=== PATIENT | female | born 1975 | race Caucasian/White ===

== ENCOUNTER 2018-04-14 17:20 | Emergency (ER) | END 2018-04-14 20:15 | disposition home or self-care (01) ==

== ENCOUNTER 2018-10-06 16:11 | Emergency (ER) | payer MEDICAID, OTHER ==
[~2018-10-06] VITALS: Ht 152.4 cm; Wt 73.0 kg
[~2018-10-06 16:11] MED LIST: IBUP-1561 PO; METF500T PO; NAPR-985 PO; TRAM50TA2 PO
[2018-10-06 16:25] VITALS: Ht 152.4 cm; Wt 73.0 kg
[2018-10-06] MEDS ORDERED: KETOROLAC 30 MG INJ IM STA (18:58)
[2018-10-06] MEDS ORDERED: IBUP-1542 PO (19:01)
[2018-10-06 20:00] VITALS: BP 128/74; PULSE 79; RESP 15
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
== END 2018-10-06 20:00 | disposition home or self-care (01) ==
LOC: E/R 16:11
DX: S20.219A Contusion of unspecified front wall of thorax, initial encounter (principal); E11.9 Type 2 diabetes mellitus without complications; V49.40XA Driver injured in collision with unspecified motor vehicles in traffic accident, initial encounter; Z79.84 Long term (current) use of oral hypoglycemic drugs
CPT/HCPCS: 71045; 93005; 96372; J1885; Z7502

== ENCOUNTER 2019-01-08 10:07 | Emergency (ER) | payer OTHER ==
[~2019-01-08] VITALS: Ht 162.6 cm; Wt 70.0 kg
[~2019-01-08 10:07] MED LIST changes: +IBUP-1542 PO; -IBUP-1561 PO; -METF500T PO; -NAPR-985 PO; -TRAM50TA2 PO
[2019-01-08 10:16] VITALS: BP 139/81; PULSE 84; RESP 16; Ht 162.6 cm; Wt 70.0 kg
[2019-01-08] MEDS ORDERED: LIDOCAINE 1% (MDV) 20 ML INJ SC ONE (12:00)
--- NOTE | 2019-01-08 12:15 | ERD ---
ER Documentation Chief Complaint Chief Complaint pt bib self with c/o right great toenail pain/swelling s/p pedicure HPI 43-year-old female presents with complaint of pain to the right first toenail. States that is been hurting her since this past Friday. Pain is made worse with palpation. Denies any treatments. Denies any trauma to the area. Denies any fevers chills infection discharge. ROS All systems reviewed and are negative except as per history of present illness. Medications Home Meds Active Scripts Clindamycin Hcl* (Clindamycin Hcl*) 300 Mg Capsule, 300 MG PO TID for 7 Days, CAP Prov:LASHELL DURAND PA-C 01/10/19 Hydrocodone/Acetaminophen ([place] 5-325 Tablet) 1 Each Tablet, 1 TAB PO Q6H PRN for PAIN, #10 TAB Prov:JUDIE REN 01/08/19 Ibuprofen* (Motrin*) 600 Mg Tab, 600 MG PO Q6 for pain, #30 TAB Prov:JUDIE REN 01/08/19 Bacitracin* (Bacitracin Oint (UD)*) 1 Applic Oint, 1 APPLIC TOP BID, #1 TUB APPLY TO Prov:JUDIE REN 01/08/19 Ibuprofen* (Motrin*) 600 Mg Tab, 600 MG PO Q8 PRN for PAIN AND/OR INFLAMMATION, #30 TAB Prov:SOCO STINSON MD 10/06/18 Allergies Allergies: Coded Allergies: No Known Allergy (Unverified , 01/10/19) PMhx/Soc History of Surgery: No Anesthesia Reaction: No Hx Neurological Disorder: No Hx Respiratory Disorders: No Hx Cardiac Disorders: No Hx Psychiatric Problems: No Hx Miscellaneous Medical Probl: No Hx Alcohol Use: No Hx Substance Use: No Hx Tobacco Use: No Smoking Status: Never smoker FmHx Family History: No diabetes, No coronary disease, No other Physical Exam Vitals Vital Signs Date Temp Pulse Resp B/P (MAP) Pulse Ox O2 O2 Flow FiO2 Time Delivery Rate 01/08/19 98.3 84 16 139/81 99 10:16 (100) Physical Exam Const: No acute distress Head: Atraumatic Eyes: Normal Conjunctiva ENT: Normal External Ears, Nose and Mouth. Neck: Full range of motion. No meningismus. Resp: Clear to auscultation bilaterally Cardio: Regular rate and rhythm, no murmurs Abd: Soft, non tender, non distended. Normal bowel sounds Skin: No petechiae or rashes Back: No midline or flank tenderness Ext: No cyanosis, or edema Neur: Awake and alert Psych: Normal Mood and Affect First left toe: Edema and erythema noted to the left lateral aspect of left first toe consistent with ingrown toenail. There is no discharge or fluctuance noted. Sensation is intact. Results 24 hrs Current Medications Medications Dose Sig/Alexis Start Time Status Last (Trade) Ordered Route PRN Stop Time Admin Dose Reason Admin Lidocaine 20 ml ONCE ONCE 01/08/19 DC (Xylocaine SC 12:00 01/08/19 1% (Mdv) 20 12:01 ml) Bacitracin 1 applic ONCE ONCE 01/08/19 DC 01/08/19 (Bacitracin TOP 13:30 01/08/19 13:07 Oint (Ud)) 13:31 Procedures/MDM MDM: Patient's presentation is consistent with ingrown toenail. Toenail removal was performed using lidocaine for digital block. Procedure was done without complications. Bacitracin was applied and wound was dressed. Patient given Rx for bacitracin advised to apply twice a day. I have low suspicion for acute space infection or other emergent condition. After procedure patient was neurovascularly intact. Patient discharged with strict ER precautions. Patient advised to follow up with PMD. All questions answered at discharge. Departure Diagnosis: Primary Impression: Ingrown toenail Condition: Stable JUDIE REN January 08, 2019 12:15
[2019-01-08] MEDS ORDERED: BACITRACIN 0.9 GM OINT TOP ONE (13:30)
[2019-01-08] MEDS ORDERED: IBUP-1542 PO (13:43)
[2019-01-08] MEDS ORDERED: HYDR-4011 PO (13:43)
[2019-01-08] MEDS ORDERED: BACITUD TOP (13:43)
== END 2019-01-08 13:59 | disposition home or self-care (01) ==
LOC: FTE 10:07
DX: L60.0 Ingrowing nail (principal)
CPT/HCPCS: 11765; Z7502

== ENCOUNTER 2019-01-10 07:17 | Emergency (ER) | payer OTHER ==
[~2019-01-10] VITALS: Wt 76.0 kg
[~2019-01-10 07:17] MED LIST changes: +BACITUD TOP; +HYDR-4011 PO
[2019-01-10 07:19] VITALS: BP 140/76; PULSE 73; RESP 18
[2019-01-10] MEDS ORDERED: CLIN300C10 PO (07:39)
--- NOTE | 2019-01-10 07:43 | ERD ---
ER Documentation Chief Complaint Chief Complaint RIGHT BIG TOE WOUND CHECK HPI 43-year-old female is here for 2-day wound check for her right big toe where she had a toenail removal for ingrown toenail 2 days ago. She is concerned it may be infected as she notices some redness around it and is been a little bit of bleeding and pus. No fevers. She is ambulatory. No numbness or tingling. ROS All systems reviewed and are negative except as per history of present illness. Medications Home Meds Active Scripts Clindamycin Hcl* (Clindamycin Hcl*) 300 Mg Capsule, 300 MG PO TID for 7 Days, CAP Prov:LASHELL DURAND PA-C 01/10/19 Hydrocodone/Acetaminophen ([place] 5-325 Tablet) 1 Each Tablet, 1 TAB PO Q6H PRN for PAIN, #10 TAB Prov:JUDIE REN 01/08/19 Ibuprofen* (Motrin*) 600 Mg Tab, 600 MG PO Q6 for pain, #30 TAB Prov:JUDIE REN 01/08/19 Bacitracin* (Bacitracin Oint (UD)*) 1 Applic Oint, 1 APPLIC TOP BID, #1 TUB APPLY TO Prov:JUDIE REN 01/08/19 Ibuprofen* (Motrin*) 600 Mg Tab, 600 MG PO Q8 PRN for PAIN AND/OR INFLAMMATION, #30 TAB Prov:SOCO STINSON MD 10/06/18 Allergies Allergies: Coded Allergies: No Known Allergy (Unverified , 01/10/19) PMhx/Soc History of Surgery: No Anesthesia Reaction: No Hx Neurological Disorder: No Hx Respiratory Disorders: No Hx Cardiac Disorders: No Hx Psychiatric Problems: No Hx Miscellaneous Medical Probl: No Hx Alcohol Use: No Hx Substance Use: No Hx Tobacco Use: No Smoking Status: Never smoker FmHx Family History: No diabetes Physical Exam Vitals Vital Signs Date Temp Pulse Resp B/P (MAP) Pulse Ox O2 O2 Flow FiO2 Time Delivery Rate 01/10/19 97.8 73 18 140/76 99 07:19 (97) Physical Exam Const: No acute distress Head: Atraumatic Eyes: Normal Conjunctiva ENT: Normal External Ears, Nose and Mouth. Neck: Full range of motion. No meningismus. Resp: Clear to auscultation bilaterally Cardio: Regular rate and rhythm, no murmurs Right foot: Great toe partial removal of toenail, mild surrounding pinkness, no bleeding or drainage, no warmth Procedures/MDM Patient is here for a wound check of her great toe. There is some mild surrounding pinkness however it does not appear like true erythema. She is afe brile. She is concerned about infection. Clindamycin given. Patient counseled regarding my diagnostic impression and care plan. Prior to discharge all questions answered. Pt agrees with treatment plan and understands strict return precautions. Pt is instructed to follow up with primary care provider within 24- 48 hours. Precautionary instructions provided including instructions to return to the ER if not improving or for any worsening or changing symptoms or concerns. Departure Diagnosis: Primary Impression: Encounter for wound re-check Condition: Stable Patient Instructions: Wound Check, Lac F/U (No Infection) Additional Instructions: Llame al doctor MAANA y dieog favio MARLIN PARA DENTRO DE 1-2 MOODY.Dgale a la secretaria que nosotros le instruimos hacer esta marlin.Avise o llame si garza condicin se empeora antes de la marlin. Regresa aqui si peor o no mejor. LASHELL DURAND PA-C January 10, 2019 07:43
== END 2019-01-10 07:50 | disposition home or self-care (01) ==
LOC: FTE 07:17
DX: Z48.01 Encounter for change or removal of surgical wound dressing (principal)
CPT/HCPCS: 99283

== ENCOUNTER 2019-01-14 16:39 | Emergency (ER) | payer OTHER ==
[~2019-01-14] VITALS: Ht 162.6 cm; Wt 73.5 kg
[~2019-01-14 16:39] MED LIST changes: +CLIN300C10 PO
[2019-01-14 17:01] VITALS: Ht 162.6 cm; Wt 73.5 kg
--- NOTE | 2019-01-14 18:10 | ERD ---
ER Documentation Chief Complaint Chief Complaint R great toe pain after ingrown toenail removal 6 days ago HPI 43-year-old female, previously healthy, status post ingrown toenail removal 6 days ago, presents to the emergency department for checkup. The patient refers mild pain but no fever or chills. She also reports mild yellowish discharge, non-malodorous. No local edema, erythema or warmth. ROS All systems reviewed and are negative except as per history of present illness. Medications Home Meds Active Scripts Clindamycin Hcl* (Clindamycin Hcl*) 300 Mg Capsule, 300 MG PO TID for 7 Days, CAP Prov:LASHELL DURAND PA-C 01/10/19 Hydrocodone/Acetaminophen ([place] 5-325 Tablet) 1 Each Tablet, 1 TAB PO Q6H PRN for PAIN, #10 TAB Prov:JUDIE REN 01/08/19 Ibuprofen* (Motrin*) 600 Mg Tab, 600 MG PO Q6 for pain, #30 TAB Prov:JUDIE REN 01/08/19 Bacitracin* (Bacitracin Oint (UD)*) 1 Applic Oint, 1 APPLIC TOP BID, #1 TUB APPLY TO Prov:JUDIE REN 01/08/19 Ibuprofen* (Motrin*) 600 Mg Tab, 600 MG PO Q8 PRN for PAIN AND/OR INFLAMMATION, #30 TAB Prov:SOCO STINSON MD 10/06/18 Allergies Allergies: Coded Allergies: No Known Allergy (Unverified , 01/10/19) PMhx/Soc Patient with history of diabetes History of Surgery: No Anesthesia Reaction: No Hx Neurological Disorder: No Hx Respiratory Disorders: No Hx Cardiac Disorders: No Hx Psychiatric Problems: No Hx Miscellaneous Medical Probl: No Hx Alcohol Use: No Hx Substance Use: No Hx Tobacco Use: No Smoking Status: Never smoker FmHx Family History: diabetes Physical Exam Vitals Vital Signs Date Temp Pulse Resp B/P (MAP) Pulse Ox O2 O2 Flow FiO2 Time Delivery Rate 01/14/19 98.2 92 18 146/87 97 17:01 (106) Physical Exam Const: No acute distress Head: Atraumatic Eyes: Normal Conjunctiva ENT: Normal External Ears, Nose and Mouth. Neck: Full range of motion. No meningismus. Resp: Clear to auscultation bilaterally Cardio: Regular rate and rhythm, no murmurs Abd: Soft, non tender, non distended. Normal bowel sounds Skin: No petechiae or rashes Back: No midline or flank tenderness Ext: Right great toenail: With lateral fold wound, clean, dry and intact. No cyanosis, or edema Neur: Awake and alert Psych: Normal Mood and Affect Procedures/MDM Status post ingrown toenail removal 6 days ago. Adequate pain control, no fever, no chills, good compliance with medications no side effects. The patient was evaluated for infection and neurovascular compromise. Patient is stable, with adequate healing process, okay to discharge home, medication adherence reinforced. The patient was instructed to follow up with the primary care provider in the next 48h. If symptoms persist, worsen or new symptoms develop, then patient should return to the ED immediately. Instructions explained and given directly by me to the patient with acknowledgment and demonstrated understanding. Disclaimer: Inadvertent spelling and grammatical errors are likely due to E HR/dictation software use and do not reflect on the overall quality of patient care. Also, please note that the electronic time recorded on this note does not necessarily reflect the actual time of the patient encounter. Departure Diagnosis: Primary Impression: Ingrown toenail Additional Impression: Status post nail surgery Condition: Stable Additional Instructions: Thank you very much for allowing us to participate in your care. Your health and safety is our top priority at [facility]. The evaluation in the emergency department has been done to rule out an acute emergency, therefore, chronic conditions like malignancy or other diseases have not been evaluated; therefore, you need to follow up with a primary care provider in the next 48h. If symptoms persist, worsen or new symptoms develop, then patient should return to the ED immediately. Call your primary care doctor TOMORROW for an appointment during the next 2-4 days and bring all the information provided. Have prescriptions filled and follow precisely the directions on the label. If the symptoms get worse and your provider is unavailable, return to the Emergency Department immediately. KASANDRA COLBY MD January 14, 2019 18:10
[2019-01-14 18:43] VITALS: BP 138/78; PULSE 69; RESP 19
== END 2019-01-14 18:44 | disposition home or self-care (01) ==
LOC: FTE 16:39
DX: L60.0 Ingrowing nail (principal); Z87.2 Personal history of diseases of the skin and subcutaneous tissue
CPT/HCPCS: 99282